=== PATIENT | female | born 1990 | race Caucasian/White ===

== ENCOUNTER 2023-06-11 10:45 | Emergency (ER) | payer OTHER ==
[~2023-06-11] VITALS: Ht 165.1 cm; Wt 45.6 kg
[2023-06-11 10:46] VITALS: BP 103/68; PULSE 91; RESP 16; TEMP 98.2; O2SAT 99
[2023-06-11] MEDS ORDERED: VIGOS LEFT EYE (11:12)
[2023-06-11] MEDS ORDERED: DOXY-690 PO (11:12)
[2023-06-11 11:21] VITALS: BP 112/62; PULSE 88; RESP 16; TEMP 98; O2SAT 99
== END 2023-06-11 11:21 | disposition home or self-care (01) ==
LOC: MED 10:45
DX: H00.014 Hordeolum externum left upper eyelid (principal); H10.89 Other conjunctivitis; B96.89 Other specified bacterial agents as the cause of diseases classified elsewhere; L03.213 Periorbital cellulitis; Z79.899 Other long term (current) drug therapy; Z88.5 Allergy status to narcotic agent
CPT/HCPCS: 99283